=== PATIENT | female | born 1960 | race Caucasian/White ===

== ENCOUNTER → 2017-02-17 | Outpatient (CLI) | payer BC ==
[~2017-02-17] MED LIST: OPTIRAY 320 IV PRN
--- NOTE | 2017-02-17 10:19 | DIAGNOSTIC IMAGING REPORT ---
CT ABD/PELVIS COMBO CLINICAL HISTORY: N39.3 stress incontinence, history of bladder sling. History of breast carcinoma. COMPARISON STUDY: None. TECHNIQUE: Unenhanced images were obtained through the abdomen and pelvis. The patient was injected with 50 cc of Optiray 320. After 5 minute delay, the patient is rescanned in a dynamic helical fashion during the additional administration of 69 cc of Optiray 320. A dose lowering technique was utilized adhering to the principles of ALARA. CT DOSE: 2035.44 mGycm FINDINGS: Lower chest: There are minimal dependent atelectatic changes. Liver: There is hepatic steatosis. With thin the left lobe of the liver, there is a subtle 21 mm hyperdense focus, likely representing focal fatty sparing. Gallbladder: Surgically absent Spleen: Normal in size and attenuation. Pancreas: Unremarkable. Adrenal glands: Unremarkable. Kidneys: No renal, ureteral, or bladder calculi are visualized. No renal masses are visualized. No ureteral or collecting system lesions are visualized. Bowel: There are no transition zones indicate bowel obstruction. There is colonic diverticulosis. There are no acute peridiverticular inflammatory changes. The appendix appears normal. Peritoneum: There is no intraperitoneal free air or abdominal ascites. There is minimal nonspecific infiltration of the left central mesentery. Vasculature: The abdominal aorta is normal in course and caliber. Adenopathy: There is a left common iliac lymph node the upper limits of normal in size. Pelvic viscera: The patient appears to be status post a prior hysterectomy. Skeletal structures: No destructive osseous lesions are seen. IMPRESSION: 1. Hepatic steatosis 2. 21 mm hyperdense lesion within left hepatic lobe likely representing focal fatty sparing 3. Minimal nonspecific infiltration of the left central mesentery 4. Post hysterectomy changes 5. No renal, ureteral, or bladder calculi identified 6. No evidence of ureteral duplication 7. No renal masses identified Electronically signed by: Wagner Andersen M.D. 02/17/2017 10:18 AM Dictated Date/Time: 02/17/2017 10:11 AM
== END | disposition home or self-care (01) ==
LOC: C.CTS 09:41
PROVIDERS: ATTEND Urology
DX: N39.3 Stress incontinence (female) (male) (principal); Z85.3 Personal history of malignant neoplasm of breast; K76.0 Fatty (change of) liver, not elsewhere classified; K76.9 Liver disease, unspecified; Z90.710 Acquired absence of both cervix and uterus

== ENCOUNTER 2017-05-30 04:59 | Day surgery (SDC) | payer BC ==
[2017-05-20 11:59] VITALS: BMI 36.0
--- NOTE | 2017-05-20 12:38 | PAT Medication Instructions ---
Service Date May 20, 2017. Current Home Medication List Ergocalciferol (Vitamin D2), 50,000 PO WK Potassium Chloride (Micro-K Ext Rel), 2 TAB PO QAM Raloxifene Hcl (Evista), 60 MG PO QAM Sitagliptin (Januvia), 50 MG PO QAM Solifenacin (Vesicare), 5 MG PO QAM Tamoxifen (Nolvadex), 20 MG PO QAM [vitamin b 12 ], Unknown Dose INJ UD Medication Instructions For Your Scheduled Surgery -Continue as directed: Ergocalciferol (Vitamin D2), 50,000 PO WK [vitamin b 12 ], Unknown Dose INJ UD - Hold the following medications the morning of surgery: Potassium Chloride (Micro-K Ext Rel), 2 TAB PO QAM Sitagliptin (Januvia), 50 MG PO QAM - Take the following medications the morning of surgery with a sip of water: Solifenacin (Vesicare), 5 MG PO QAM Tamoxifen (Nolvadex), 20 MG PO QAM Raloxifene Hcl (Evista), 60 MG PO QAM If you have any questions please call us at [phone] or [phone] or [phone]
[~2017-05-30] VITALS: Ht 167.6 cm; Wt 102.5 kg
[~2017-05-30 04:59] MED LIST changes: +ERGO1TAB12 PO; -OPTIRAY 320 IV PRN; +POTA10CA28 PO; +RALO60TA30 PO; +SITA50TA3 PO; +TAMO20TA9 PO; +VSC/5 PO; +vitamin b 12 INJ
[2017-05-30 05:39] VITALS: BP 145/89; PULSE 82; TEMP 36.6; O2SAT 94; Ht 167.6 cm; Wt 102.5 kg
[2017-05-30] MEDS ORDERED: CEFAZOLIN 2000MG IV PUSH 10 ML IV SCH (06:00)
[2017-05-30] MEDS ORDERED: SODIUM CHLORIDE 0.9% IV SCH (06:00)
[2017-05-30] MEDS ORDERED: DESMOPRESSIN ACETATE IV SCH (06:00)
[2017-05-30] MEDS ORDERED: LACTATED RINGER'S 1000ML 1,000 ML IV SCH ×2 (06:00)
[2017-05-30] MEDS ORDERED: FENTANYL CITRATE INJ 50 MCG/1 ML 2 ML VIAL IV PRN (06:45)
[2017-05-30] MEDS ORDERED: ATROPINE SULFATE 0.1 MG/ML 5ML SYR IV PRN (06:45)
[2017-05-30] MEDS ORDERED: METOCLOPRAMIDE HCL INJ 5 MG/ML 2 ML VIAL IV PRN (06:45)
[2017-05-30] MEDS ORDERED: ONDANSETRON INJ 2 MG/ML 2 ML VIAL IV PRN ×2 (06:45→10:00)
[2017-05-30] MEDS ORDERED: EpHEDrine SULFATE INJ 50 MG/ML AMP IV PRN (06:45)
[2017-05-30] MEDS ORDERED: PROMETHAZINE HCL INJ 12.5 MG in SODIUM CHLORIDE 0.9% 50ML 50 ML IV PRN (06:45)
[2017-05-30] MEDS ORDERED: HYDROmorphone INJ 1 MG/ML SYR IV PRN (06:45)
[2017-05-30] MEDS ORDERED: DEXAMETHASONE SOD INJ 4 MG/ML VIAL ONE (06:58)
[2017-05-30] MEDS ORDERED: ONDANSETRON INJ 2 MG/ML 2 ML VIAL ONE ×2 (06:58→09:38)
[2017-05-30] MEDS ORDERED: FENTANYL CITRATE INJ 50 MCG/1 ML 2 ML VIAL ONE ×2 (06:58→08:00)
[2017-05-30] MEDS ORDERED: LIDOCAINE HCL 2% 2 ML VIAL (20MG/ML) ONE ×4 (06:58→09:29)
[2017-05-30] MEDS ORDERED: MIDAZOLAM HCL 1 MG/ML 2ML VIAL ONE (06:58)
[2017-05-30] MEDS ORDERED: PROPOFOL IV EMULSION 10 MG/ML 20 ML VIAL IV ONE (06:58)
[2017-05-30] MEDS ORDERED: METHYLENE BLUE 0.5% 10 ML VIAL ONE (07:03)
[2017-05-30] MEDS ORDERED: CONRAY 30% 150ML BOTTLE ONE (07:03)
[2017-05-30] MEDS ORDERED: BUPIVACAINE 0.5 % 5 MG/1 ML MPF 30ML VIAL ONE (07:03)
[2017-05-30] MEDS ORDERED: ACETAMINOPHEN 1000 MG/100 ML IV IV ONE (07:05)
--- NOTE | 2017-05-30 07:13 | History & Physical Bridge Note ---
H&P Re-Evaluation Bridge Note: I have examined the patient, reviewed the History & Physical and in the interval since the performance of the History & Physical I have noted the following changes of clinical significance: Reviewed the issues surrounding the right ureter and what the increased risks of damage are to it. WILMAN
[2017-05-30] MEDS ORDERED: HYDROmorphone INJ 2 MG/ML SYR/VIAL ONE (09:29)
[2017-05-30] MEDS ORDERED: EpHEDrine SULFATE 50MG/5ML SYR ONE (09:31)
[2017-05-30] MEDS ORDERED: PHENYLEPHRINE 100MCG/ML 5ML SYR ONE (09:31)
[2017-05-30] MEDS ORDERED: ROCURONIUM BROMIDE 10 MG/ML 5 ML VIAL IV ONE (09:37)
[2017-05-30] MEDS ORDERED: NEOSTIGMINE METHYLSULFATE 5 MG/5 ML SYR ONE (09:37)
[2017-05-30] MEDS ORDERED: GLYCOPYRROLATE INJ 0.2 MG/ML VIAL ONE (09:37)
[2017-05-30] MEDS ORDERED: TISSEEL FIBRIN SEALANT 4ML TOP ONE ×2 (09:41→09:42)
[2017-05-30] MEDS ORDERED: SODIUM CHLORIDE 0.9% 1000ML 1,000 ML IV SCH (09:49)
--- NOTE | 2017-05-30 09:51 | [facility] Post Operative Brief Note ---
Immediate Operative Summary Operative Date May 30, 2017. Pre-Operative Diagnosis 1.High risk of ovarian cancer 2. Peritoneal adhesions 3. Malignant neoplasm of breast Post-Operative Diagnosis 1.High risk of ovarian cancer 2. Peritoneal adhesions 3. Malignant neoplasm of breast Procedure(s) Performed Exploratory Laparoscopy, Removal of Right Adnexa, Lysis of Adhesions, Right Ureteralysis- DaVinci Cystoscopy, Right ureteral stent placement Surgeon Dr. Fernando and Dr. Jennings It Help Desk Analyst Surgeon(s) None Estimated Blood Loss 40 mL Findings dense adhesions Specimens Permanent specimens A: Right Adnexa Drains Right ureter stent Anesthesia General Complication(s) None Disposition Recovery Room / PACU
--- NOTE | 2017-05-30 09:51 | Discharge Instructions ---
Discharge Instructions Date of Service May 30, 2017. Admission Reason for Admission: High Risk Of Ovarian Cancer, Urinary Incontinence Discharge Discharge Diagnosis / Problem: right ovarian remnant Discharge Goals Goal(s): Routine recovery after surgery Activity Recommendations Activity Limitations: per Instructions/Follow-up section . Instructions / Follow-Up Instructions / Follow-Up ACTIVITY RECOMMENDATIONS: * Rest the first 2-3 days. You should be back to your normal activity levels by day 3. * No heavy lifting for 2 weeks. * No intercourse, tampons or douching for 1-2 weeks. * You may shower the next day. * Do not drive anytime that you are taking narcotic pain medicines. RETURN TO SCHOOL/WORK: * May return to school or work after 2-3 days. DIET: Nausea may occur in the immediate post-operative period. If so, take clear liquids such as tea, bouillon, apple juice until all nausea has subsided, then resume usual diet. MEDICATIONS: Resume previous medications unless instructed otherwise by your surgeon. Ibuprofen 200mg 2-3 tablets every 4-6 hours as needed -- OR -- Aleve 2 tablets every 8-12 hours as needed for post-operative discomfort Medications are over the counter. Tylenol may be used if above medications are contraindicated or not preferred. Medication should be taken with food or milk. Do not take on an empty stomach. SPECIAL CARE INSTRUCTIONS: * Check temperature twice daily for one week. report any elevation over 101 degrees. * You may experience some vagina spotting and/or bleeding. This is normal for 1 -2 weeks and should not be heavier than a normal period. If it is unusual in amount, call your physician. * Post-operative discomfort may consist of a sore throat, a "bloated" feeling and pain in the shoulders. these are normal symptoms, which usually only last for 2-3 days. * Remove band-aids tomorrow and shower. There is no need to replace band-aids unless there is drainage or discomfort. FOLLOW UP VISIT: Call your doctor's office for a post-operative 2 week visit if not already scheduled. Current Hospital Diet Patient's current hospital diet: Discharge Diet Recommended Diet: Regular Diet Procedures Procedures Performed: Exploratory Laparoscopy, Removal of Right Adnexa, Lysis of Adhesions, Right Ureteralysis- DaVinci Cystoscopy, Right ureteral stent placement Pending Studies Studies pending at discharge: no Medical Emergencies . Who to Call and When: Medical Emergencies: If at any time you feel your situation is an emergency, please call 911 immediately. . Non-Emergent Contact Non-Emergency issues call your: Bus Girl . . "Provider Documentation" section prepared by Isaac Fernando. . VTE Core Measure Inpt VTE Proph given/why not?: Tianna Cespedes, FRANKLIN's
[2017-05-30] MEDS ORDERED: MTR600X PO (09:52)
[2017-05-30] MEDS ORDERED: OXYC-57 PO (09:52)
[2017-05-30] MEDS ORDERED: OXYCODONE/ACETAMINOPHEN 5-325 TAB PO PRN ×2 (10:00)
[2017-05-30] MEDS ORDERED: PROMETHAZINE HCL INJ 25 MG in SODIUM CHLORIDE 0.9% 50ML 50 ML IV PRN (10:00)
[2017-05-30] MEDS ORDERED: KETOROLAC TROMETHAMINE 30 MG/ML VIAL IV. PRN (10:00)
[2017-05-30] MEDS ORDERED: IBUPROFEN 600 MG TAB PO PRN (10:00)
--- NOTE | 2017-05-30 10:06 | [facility] Operative Report ---
Operative Report Operative Date May 30, 2017. Pre-Operative Diagnosis 1.High risk of ovarian cancer 2. Peritoneal adhesions 3. Malignant neoplasm of breast Post-Operative Diagnosis 1.High risk of ovarian cancer 2. Peritoneal adhesions 3. Malignant neoplasm of breast Procedure(s) Performed Exploratory Laparoscopy, Removal of Right Adnexa, Lysis of Adhesions, Right Ureteralysis- DaVinci Cystoscopy, Right ureteral stent placement Surgeon Dr. Fernando and Dr. Jennings Molded Goods Operator Surgeon(s) None Estimated Blood Loss 40 mL Findings Moderately scarred right adnexa; healthy-appearing bladder and ureter Specimens Permanent specimens A: Right Adnexa Drains Right ureteral stent ([id number]) Anesthesia General Complication(s) None Disposition Recovery Room / PACU Indications High risk for ovarian cancer Description of Procedure The patient was identified in the preoperative holding area, appropriate informed consents reviewed and completed and she was transported to the operating suite. Upon arrival she received appropriate preoperative antibiotics in the form of Ancef as well as general anesthesia. She was placed in dorsal lithotomy position where she was sterilely prepped and draped in standard fashion. For the initial portion of the case, a cystoscope was passed per urethra and full inspection of the bladder conducted. She has no evidence of mucosal abnormalities or tumors. Ureteral orifices were in orthotopic position. Following my inspection, I turned my attention to the right ureteral orifice and cannulated it with a sensor wire and a 6 Latvian open-ended catheter. After advancing the wire to the level of the kidney, I withdrew the 6 Latvian open- ended catheter and placed a 6 Latvian by 24 cm double-J ureteral stent. There was an excellent curl in the bladder. Fluoroscopic guidance was not used for this portion of the case and an x-ray will be checked in the recovery room to confirm appropriate placement. Preparation for the abdominal portion of the case was then conducted, with port placement as per standard positioning for Dr. Fernando. Details of this portion of the case are as dictated in his section of the operative report. To assist with his dissection and procedure, I assumed control of the robot and dissected the right ureter from the level of the common iliac vessels down into the right deep pelvis exposing approximately 10 cm of ureter. The previously placed ureteral stent was easily visualized within the ureter, and there was no evidence of injury or trauma to the ureter.. Following this ureteral lysis and mobilization of the right ureter, Dr. Fernando resumed his dissection of the adnexa, circumferentially dissecting around the ovary and completing his oophorectomy and clearance of the right adnexa. I remained present for the remainder of the case, and there were no complications.. Excellent hemostasis was confirmed prior to conclusion of the case. The ureteral stent was left in place - and will be removed within 1-2 weeks in my office. I attest to the content of the Intraoperative Record and any orders documented therein. Any exceptions are noted below.
--- NOTE | 2017-05-30 10:26 | DIAGNOSTIC IMAGING REPORT ---
KUB CLINICAL HISTORY: 57 years-old Female presenting with stent. TECHNIQUE: Single supine view of the abdomen was obtained. COMPARISON: CT from 02/17/2017. FINDINGS: A right ureteral stent is now in place. Cholecystectomy clips noted. Surgical clip projects over the right sacroiliac joint. Nonobstructive bowel gas pattern. No gross pneumoperitoneum. Allowing for bowel gas and stool, no calcifications to suggest nephrolithiasis. Numerous right pelvic phleboliths. Osseous structures normal. IMPRESSION: 1. Right ureteral stent in place. No radiographic evidence of nephrolithiasis. Electronically signed by: Ameya Whitlock M.D. 05/30/2017 10:25 AM Dictated Date/Time: 05/30/2017 10:23 AM
--- NOTE | 2017-05-30 11:02 | Anesthesiology Progress Note ---
Anesthesia Post Op Note Date & Time May 30, 2017 at 11:02 Vital Signs Pain Intensity: 0 Vital Signs Past 12 Hours Date Time Temp Pulse Resp B/P (MAP) Pulse Ox O2 Delivery O2 Flow Rate FiO2 05/30/17 10:54 69 21 93 05/30/17 10:54 68 21 05/30/17 10:52 36.4 72 20 126/75 94 10 05/30/17 10:51 126/75 05/30/17 10:49 78 24 95 05/30/17 10:49 77 24 05/30/17 10:48 74 25 93 05/30/17 10:48 74 25 93 05/30/17 10:48 74 25 05/30/17 10:48 74 25 05/30/17 10:47 138/68 05/30/17 10:47 138/68 05/30/17 10:43 77 30 05/30/17 10:43 77 30 94 05/30/17 10:43 77 30 05/30/17 10:43 77 30 94 05/30/17 10:42 145/69 05/30/17 10:42 145/69 05/30/17 10:38 74 12 98 05/30/17 10:38 75 12 05/30/17 10:38 75 12 05/30/17 10:38 74 12 98 05/30/17 10:36 139/76 05/30/17 10:36 139/76 05/30/17 10:33 73 18 05/30/17 10:33 74 18 97 05/30/17 10:33 73 18 05/30/17 10:33 74 18 97 05/30/17 10:31 137/77 05/30/17 10:31 137/77 05/30/17 10:28 76 21 96 05/30/17 10:28 76 21 96 05/30/17 10:28 76 21 05/30/17 10:28 76 21 05/30/17 10:27 68 12 97 05/30/17 10:27 68 12 05/30/17 10:26 139/75 05/30/17 10:24 73 8 98 05/30/17 10:24 72 8 05/30/17 10:21 137/87 05/30/17 10:19 84 17 05/30/17 10:19 85 17 94 05/30/17 10:16 140/77 05/30/17 10:14 85 14 92 05/30/17 10:14 85 14 05/30/17 10:11 128/68 05/30/17 10:09 75 12 05/30/17 10:09 75 12 95 05/30/17 10:06 134/75 05/30/17 10:05 133/74 05/30/17 10:04 88 18 90 05/30/17 10:04 36.0 81 10 133/74 93 Oxymask 10 05/30/17 10:04 88 18 05/30/17 05:39 36.6 82 18 145/89 (107) 94 Room Air Notes Mental Status: alert / awake / arousable, participated in evaluation Pt Amnestic to Procedure: Yes Nausea / Vomiting: adequately controlled Pain: adequately controlled Airway Patency, RR, SpO2: stable & adequate BP & HR: stable & adequate Hydration State: stable & adequate Anesthetic Complications: no major complications apparent
[2017-05-30 11:05] VITALS: BP 117/68; PULSE 75; TEMP 36.5; O2SAT 94
--- NOTE | 2017-05-30 11:19 | OPERATIVE REPORT ---
DATE OF OPERATION: 05/30/2017 PREOPERATIVE DIAGNOSIS: High risk for ovarian cancer, right ovarian remnant dense adhesions. POSTOPERATIVE DIAGNOSIS: Same. PROCEDURE: Da Flavio robotically assisted laparoscopic removal of right adnexa, right ureteral lysis, dissection of adhesions and cystoscopy and right ureter stent placed by Dr. Jennings. SURGEON: Drs. Fernando and Dick. ELECTRICAL TESTS SUPERVISOR: None. SPECIMENS: Right adnexa. ESTIMATED BLOOD LOSS: 40 mL FINDINGS: Dense adhesions. DRAINS: Right ureter stent. ANESTHETIC: General. COMPLICATIONS: None. DISPOSITION: Recovery room. DESCRIPTION OF PROCEDURE: Farzaneh was given a general anesthetic, prepped and draped in dorsal lithotomy position. Ancef given preoperatively. The patient was cystoscoped and a stent was placed in her right ureter by Dr. Jennings. Mares catheter placed after this. The procedure was begun by using a supraumbilical incision. Using Delmi technique, we did a direct cutdown through subcutaneous fat through fascia, splitting the rectus muscles and entering the peritoneal cavity. Blunt-tipped Delmi trocar with balloon to stabilize the port was placed, CO2 gas to insufflate the abdomen. Three robotic ports, 2 in the right, 1 in the left placed, and left upper quadrant 5 mm which was eventually switched to an 11 mm was then placed. After deep Trendelenburg position was obtained, robot was docked. Arm #1 was monopolar katelyn, arm #2 was the bipolar [place], arm #3 was the ProGrasp. There were dense adhesions of the large bowel, epiploicae over the right adnexal area. These were dissected away in the usual fashion largely without electrosurgery but using minimal electrosurgery from the monopolar katelyn when needed. Once the bowel was retracted enough, we identified first the right IP ligament and also the right ureter. Dr. Jennings fully dissected the right ureter away from the adnexa. The adnexa appeared to be a conglomeration of IP ligament and ovary, it was fairly small but definitely had appearance of ovary. Once the ureter was dissected away from this, I was then able to find the IP ligament, coagulated this with the bipolar [place], cut this with monopolar katelyn, and we dissected away the right ovary and adnexa from its lateral attachments and from its attachments near the vagina. Care was taken to avoid damage to surrounding structures. We were well away from the ureter at this point too. At this stage, we then did place an 11 mm port and then removed the adnexa through this port with a grasper. After generous irrigation and suction, we did improve hemostasis in the region. It should be noted the patient did have DDAVP before but hemostasis was excellent. Tisseel 4 mL was applied through an accessory port as well. We did do a low pressure CO2 test and she passed this as well with minimal bleeding. At this stage, the case was completed. Instruments removed under direct visualization. Ports removed, gas allowed to escape. Incisions injected with 0.5% Marcaine. Fascia closed with 0 Vicryl. Subcutaneous fat irrigated and closed as well. Left upper quadrant was closed with deep stitches of 0 Vicryl and then subcuticular 4-0 Monocryl closures with Dermabond. Mares catheter removed. There was some hematuria but this was expected as the patient had a right ureter stent. Stent will be left in afterward and Dr. Jennings will have this dealth with as an outpatient. I attest to the content of the Intraoperative Record and any orders documented therein. Any exception s are noted below.
[2017-05-30 11:35] VITALS: BP 132/63; PULSE 74; O2SAT 94
[2017-05-30 12:05] VITALS: BP 143/76; PULSE 86; TEMP 36.4; O2SAT 96
== END 2017-05-30 12:17 | disposition home or self-care (01) ==
LOC: C.ACU 04:59
PROVIDERS: ATTEND Obstetrics & Gynecology
DX: K66.0 Peritoneal adhesions (postprocedural) (postinfection) (principal); C50.919 Malignant neoplasm of unspecified site of unspecified female breast; E78.00 Pure hypercholesterolemia, unspecified; E78.5 Hyperlipidemia, unspecified; M06.9 Rheumatoid arthritis, unspecified; E11.9 Type 2 diabetes mellitus without complications; K21.9 Gastro-esophageal reflux disease without esophagitis; E66.9 Obesity, unspecified; Z91.89 Other specified personal risk factors, not elsewhere classified; Z80.41 Family history of malignant neoplasm of ovary; Z82.49 Family history of ischemic heart disease and other diseases of the circulatory system; Z90.710 Acquired absence of both cervix and uterus; Z90.49 Acquired absence of other specified parts of digestive tract
CPT/HCPCS: 50947; 58661; S2900

== ENCOUNTER 2017-08-12 08:11 | Day surgery (SDC) | payer BC ==
[2017-07-21 13:49] VITALS: Ht 167.6 cm; Wt 102.7 kg
[~2017-08-12] VITALS: Ht 167.6 cm; Wt 102.7 kg
[~2017-08-12 08:11] MED LIST changes: +ACET-1256 PO; +CALC500C3 PO; +CIPROFLOXACIN / D5W 400 MG IV SCH; +DESMOPRESSIN ACETATE IV SCH; +LACTATED RINGER'S 1000ML 1,000 ML IV SCH; +SODIUM CHLORIDE 0.9% IV SCH
[2017-08-12 08:32] VITALS: BP 164/76; PULSE 77; TEMP 36.8; O2SAT 96
[2017-08-12] MEDS ORDERED: ATROPINE SULFATE 0.1 MG/ML 5ML SYR IV PRN (09:30)
[2017-08-12] MEDS ORDERED: HYDROmorphone INJ 1 MG/ML SYR IV PRN (09:30)
[2017-08-12] MEDS ORDERED: ONDANSETRON INJ 2 MG/ML 2 ML VIAL IV PRN (09:30)
[2017-08-12] MEDS ORDERED: FENTANYL CITRATE INJ 50 MCG/1 ML 2 ML VIAL IV PRN (09:30)
[2017-08-12] MEDS ORDERED: EpHEDrine SULFATE INJ 50 MG/ML AMP IV PRN (09:30)
--- NOTE | 2017-08-12 10:28 | History & Physical Bridge Note ---
H&P Re-Evaluation Bridge Note: I have examined the patient, reviewed the History & Physical and in the interval since the performance of the History & Physical I have noted the following changes of clinical significance: No changes noted
[2017-08-12] MEDS ORDERED: LIDOCAINE/EPINEPHRINE 1% 20 ML VIAL ONE (10:29)
[2017-08-12] MEDS ORDERED: PREMARIN VAG CRM 14 APPLN/30 GM TUBE ONE (10:29)
[2017-08-12] MEDS ORDERED: BACITRACIN 50000 UNIT VIAL ONE (10:29)
[2017-08-12] MEDS ORDERED: PROPOFOL IV EMULSION 10 MG/ML 20 ML VIAL IV ONE (10:35)
[2017-08-12] MEDS ORDERED: DEXAMETHASONE SOD INJ 4 MG/ML VIAL ONE (10:35)
[2017-08-12] MEDS ORDERED: LIDOCAINE HCL 2% 2 ML VIAL (20MG/ML) ONE (10:35)
[2017-08-12] MEDS ORDERED: ONDANSETRON INJ 2 MG/ML 2 ML VIAL ONE (10:35)
[2017-08-12] MEDS ORDERED: EpHEDrine SULFATE 50MG/5ML SYR ONE (10:35)
[2017-08-12] MEDS ORDERED: PHENYLEPHRINE 100MCG/ML 5ML SYR ONE (10:35)
[2017-08-12] MEDS ORDERED: MIDAZOLAM HCL 1 MG/ML 2ML VIAL ONE (10:36)
[2017-08-12] MEDS ORDERED: FENTANYL CITRATE INJ 50 MCG/1 ML 2 ML VIAL ONE (10:36)
--- NOTE | 2017-08-12 11:45 | [facility] Post Operative Brief Note ---
Immediate Operative Summary Operative Date Aug 12, 2017. Pre-Operative Diagnosis stress incontinence Post-Operative Diagnosis same Procedure(s) Performed cystoscopy, transvagininal mid-urethral sling Surgeon Dr. Jet Jennings Cigar Wrapper Surgeon(s) MARIANGEL Ramírez Estimated Blood Loss 20ML Findings Consistent with Post-Op Diagnosis Specimens NO SPECIMEN PER SURGEON Drains None epperson to pacu Anesthesia Type General Complication(s) none Disposition Accompanied Pt To Recover: yes Disposition: Recovery Room / PACU
[2017-08-12] MEDS ORDERED: DOCU-94 PO (11:53)
[2017-08-12] MEDS ORDERED: CIPR1TAB10 PO (11:53)
[2017-08-12] MEDS ORDERED: HYDR-5688 PO (11:53)
--- NOTE | 2017-08-12 11:58 | Discharge Instructions ---
Discharge Instructions Date of Service Aug 12, 2017. Admission Reason for Admission: Urinary Stress Incontinence Discharge Discharge Diagnosis / Problem: Urinary Stress Incontinence Discharge Goals Goal(s): Decrease discomfort, Improve function, Improve disease control, Therapeutic intervention Activity Recommendations Activity Limitations: as noted below Lifting Limitations: no more than 10 pounds (x 6 weeks. Lift nothing heavier than a gallon of milk. ) Exercise/Sports Limitations: rest today, until after follow-up appointment ( Light activity x 6 weeks. No heavy exercise, lifting, or vacuuming. ) May Resume Sexual Activity: after follow-up appointment (May resume in 6 weeks after cleared by Dr. Jennings. ) Shower/Bathe: tomorrow Driving or Machine Use: resume 3 days after discharge (Do not drive while taking narcotics. ) . Current Hospital Diet Patient's current hospital diet: Discharge Diet Recommended Diet: Regular Diet Procedures Procedures Performed: cystoscopy, transvagininal mid-urethral sling Pending Studies Studies pending at discharge: no Medical Emergencies . Who to Call and When: Medical Emergencies: If at any time you feel your situation is an emergency, please call 911 immediately. . Non-Emergent Contact Non-Emergency issues call your: Urologist Call Non-Emergent contact if: temperature is above 101.5, your pain is not controlled, your pain is worsening, your pain is unusual for you, your pain is concerning you, wound has increased drainage, wound has increased redness, wound has increased pain, you have any medication questions . . "Provider Documentation" section prepared by Billie Mora. . [place] Drug Monitoring Program Search Results: patient reviewed within database, no issues identified
[2017-08-12] MEDS ORDERED: HYDROCODONE/ACETAMIN 5/325MG TAB PO PRN (12:00)
--- NOTE | 2017-08-12 12:21 | [facility] Operative Report ---
Operative Report Operative Date Aug 12, 2017. Pre-Operative Diagnosis stress incontinence Post-Operative Diagnosis same Procedure(s) Performed cystoscopy, transvagininal mid-urethral sling Surgeon Dr. Jet Jennings Laboratory Secretary Surgeon(s) MARIANGEL Ramírez Estimated Blood Loss 20ML Findings as per dictation Specimens NO SPECIMEN PER SURGEON Drains epperson to pacu Anesthesia Type General Complication(s) none Disposition yes Recovery Room / PACU Indications stress incontinence Description of Procedure The patient was identified in the preoperative holding area, appropriate informed consents reviewed and completed and she was transported to the operating suite. Upon arrival she received appropriate preoperative antibiotics in the form of ciprofloxacin. Adequate general anesthesia was achieved she was placed in dorsal lithotomy position where she was sterilely prepped and draped in standard fashion. I began the case by passing a Epperson catheter per urethra draining the bladder completely. I then palpated the pubic symphysis and marked a site approximately 2 cm lateral to the midline on both the right and the left just over the pubic arch. I infiltrated this area with 1% lidocaine with epinephrine I then turned my attention to the vaginal aspect of the surgery. Utilizing Epperson catheter to help demarcate the urethral meatus, was also able to palpate the balloon at the bladder neck. I placed an Allis clamp adjacent to the urethral meatus a second clamp adjacent to the bladder neck. Of note, her vaginal mucosa lacks some of the mobility that is normally expected, I attribute this to her prior sacral colpopexy. I was able, however, to visualize an appropriate mid urethral location and they infiltrated this tissue with 1% lidocaine with epinephrine. I continued a moderate Redding dissection utilizing the same 1% lidocaine into the cul-de-sac of the left and right aspects of the vaginal vault. I then made a midline incision between my 2 previously placed Allis clamps. I developed a vaginal flap utilizing Metzenbaum scissors, and I carried this canal laterally to the pubic arch with care to avoid encroachment upon the bladder and urethra. After developing the plane on both sides, I turned my attention to placement of the device. Utilizing the curved trocar supplied by [employer], passed the trocar including sling first on the patient's right and then on the patient's left. These were guided behind the pubic arch and around to my previously marked incision sites near the pubic symphysis. Before completing the positioning of the sling, I performed cystoscopy. The left-sided arm of the sling appeared to be positioned appropriately, however I could see a small bladder injury on the right side from the placement of the right-sided sling. I remove the sling and repositioned it. I inspected again with cystoscopy and sought appropriate repositioning of the sling without any intravesical intrusion. There was excellent hemostasis from the bladder side. I then loosely position the sling with the plastic sleeves in place before removing the slings and completing my final placement and positioning. Ultimately we achieved a tension-free position with a sling lying against the urethra and not compressing it. The extra mesh was trimmed below the skin at the suprapubic incision sites. The sites were dressed with Dermabond. The vaginal incision was irrigated using normal saline with gentamicin. I then proceeded to close the vaginal incision with a running 3-0 Vicryl suture. Vaginal packing was placed and a Epperson catheter reintroduced -both of which will be removed in the PACU. She was extubated and taken to the PACU in stable condition. MARIANGEL Guerra, assisted me throughout this case with exposure and retraction. Sling information [employer] advantage fit Reference #[id number] Lot #[id number] I attest to the content of the Intraoperative Record and any orders documented therein. Any exceptions are noted below.
[2017-08-12 12:30] VITALS: BP 136/63; PULSE 99; TEMP 36.5; O2SAT 97
--- NOTE | 2017-08-12 12:33 | Anesthesiology Progress Note ---
Anesthesia Post Op Note Date & Time Aug 12, 2017 at 12:33 Vital Signs Pain Intensity: 0 Vital Signs Past 12 Hours Date Time Temp Pulse Resp B/P (MAP) Pulse Ox O2 Delivery O2 Flow Rate FiO2 08/12/17 12:25 36.3 101 16 139/70 98 Room Air 08/12/17 12:15 108 16 98/83 97 Room Air 08/12/17 12:05 101 16 127/70 100 Oxymask 10 08/12/17 11:55 96 14 119/64 99 Oxymask 10 08/12/17 11:48 36.4 96 14 109/69 96 Oxymask 10 08/12/17 08:32 36.8 77 18 164/76 (105) 96 Room Air Notes Mental Status: alert / awake / arousable, participated in evaluation Pt Amnestic to Procedure: Yes Nausea / Vomiting: adequately controlled Pain: adequately controlled Airway Patency, RR, SpO2: stable & adequate BP & HR: stable & adequate Hydration State: stable & adequate Anesthetic Complications: no major complications apparent
[2017-08-12 13:00] VITALS: BP 135/67; PULSE 103; O2SAT 92
[2017-08-12 13:40] VITALS: BP 153/80; PULSE 98; TEMP 36.6; O2SAT 96
== END 2017-08-12 13:46 | disposition home or self-care (01) ==
LOC: C.ACU 08:11
PROVIDERS: ATTEND Urology
DX: N39.3 Stress incontinence (female) (male) (principal); E11.9 Type 2 diabetes mellitus without complications; D68.0 Von Willebrand disease; E66.9 Obesity, unspecified; Z68.36 Body mass index [BMI] 36.0-36.9, adult; Z90.710 Acquired absence of both cervix and uterus; Z90.721 Acquired absence of ovaries, unilateral; Z85.3 Personal history of malignant neoplasm of breast; Z82.49 Family history of ischemic heart disease and other diseases of the circulatory system; Z80.41 Family history of malignant neoplasm of ovary